=== PATIENT | male | born 1985 | race Caucasian/White ===

== ENCOUNTER 2021-06-22 04:02 | Emergency (ER) | payer OTHER ==
[2021-06-22] MEDS ORDERED: Diphtheria,Pertussis(Acell),Tetanus Vaccine 0.5 ML Syringe IM ONE (04:44)
[2021-06-22] MEDS ORDERED: HYDROmorphone 1 MG/ML Syringe IVPUSH ONE (04:47)
[2021-06-22] MEDS ORDERED: Ondansetron 4 MG/2 ML SDV IVPUSH ONE (04:47)
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
[2021-06-22] MEDS ORDERED: Diphtheria/Tetanus Toxoids,Adult (Td) 0.5 ML Syringe ONE (04:53)
[2021-06-22] MEDS ORDERED: Sodium Chloride 0.9% 1,000 ML IV SCH (05:00)
--- NOTE | 2021-06-22 07:19 | CT ---
CT chest Technique: Multiple axial sections were obtained from above the lung apices inferiorly through the lung bases. Intravenous contrast was utilized. Reconstructed coronal and sagittal images were obtained. Comparison: No prior chest imaging is available. Thoracic aorta shows no aneurysm. Mediastinum shows no adenopathy. No mediastinal hematoma is seen. No pericardial effusion is seen. Lung window settings were reviewed. Prominent deep tendon atelectasis is seen posteriorly within both lungs. Lungs otherwise are clear. No pleural effusions are seen. No pneumothorax is seen. Bone window settings were reviewed . Minimal lucent line is seen within the manubrium. Which is compatible with a small nondisplaced fracture. Very minimal soft tissue swelling is seen posteriorly. No discrete rib fracture is appreciated. No discrete fracture is seen within the visualized thoracic spine. Impression: 1. Prominent bilateral dependent atelectasis is seen posteriorly. 2. Nondisplaced fracture within the manubrium with minimal posterior soft tissue swelling. 3. Other portions of the CT study of the chest appear within normal limits. Diagnostic code #3 I agree with preliminary report from [facility], finalized on 06/21/21, 7:27 AM LOADER MACHINE, code 1 CT abdomen and pelvis Technique: Multiple axial sections were obtained from above the dome of the diaphragm inferiorly through the pubic symphysis. Intravenous contrast was utilized. No oral contrast has been given. Reconstructed coronal and sagittal images were obtained. Delayed images were also obtained through the abdomen and pelvis. Comparison: No prior abdominal imaging is available. Findings: Liver contains no focal parenchymal abnormality. Multiple gallstones are seen within the gallbladder. Spleen appears within normal limits. Adrenal glands show no nodule. Pancreas appears within normal limits. Kidneys show symmetric contrast enhancement. Low-density lesion noted within the inferior left kidney. This finding measures approximately 1.4 cm. This does not have Hounsfield unit measurements of a simple cyst but is most likely due to minimal hemorrhagic cyst which is likely chronic. Two additional small lesions are seen within the left kidney measuring less than 4 mm which are too small to measure by Hounsfield units but most likely represent additional cysts. Delayed images show contrast within the ureters as well as contrast within the bladder. No contrast extravasation is seen. Abdominal aorta shows no aneurysm. No retroperitoneal adenopathy or mesenteric abnormalities are seen. No pelvic mass or adenopathy is seen. Appendix is seen which is normal in size. No bowel dilatation is seen. No bowel wall thickening is seen. Bone window settings were reviewed. There is a compression deformity being seen within the superior endplate of L3 with mild anterior wedging. This is felt to be acute. There is no extension into the posterior elements being seen. No additional bony abnormality is seen within the visualized osseous structures. Impression: 1. Fracture within the anterior and superior endplate of L3 which shows anterior wedging. No extension of the fracture into the posterior elements is seen. 2. Three lesions within the left kidney which are most likely due to small cysts. 3. Gallstones are noted within the gallbladder. 4. No other acute abnormality is seen on CT study of the abdomen and pelvis. Diagnostic code #3 I agree with preliminary report from [facility], finalized on 06/21/21, 7:32 AM LOADER MACHINE
--- NOTE | 2021-06-22 07:19 | CR ---
Left elbow: 4 views of the left elbow were obtained. Comparison: No previous elbow study is available. Joint spaces are preserved. No joint effusion is seen. No fracture, dislocation or other bony abnormality is appreciated. Impression: 1. Nothing acute is seen on left elbow study. Diagnostic code #1
--- NOTE | 2021-06-22 07:19 | CT ---
CT facial bones Technique: Multiple axial sections through the facial bones were obtained. Reconstructed coronal and sagittal images were obtained. Intravenous contrast was not utilized. Comparison: No prior facial bone study is available. Findings: Nasal bone fracture is seen. This is mildly displaced by approximately 1.8 mm on the right side. Slight fracture is seen within the nasal septum. Mild amount of soft tissue air is seen compatible with soft tissue injury. Visualized paranasal sinuses show minimal mucosal thickening within the ethmoid region which is most likely chronic. Mastoid sinuses are clear. No additional facial bone fracture is seen. Impression: 1. Nasal bone fracture which is mildly displaced on the right side by 1.8 mm. Nasal septal fracture is also noted. 2. No additional facial bone abnormality is seen. Diagnostic code #3 I agree with preliminary report from [facility], finalized on 06/22/21, 7:19 AM HUMANE OFFICER, code 1
== END 2021-06-22 09:48 | disposition home or self-care (01) ==
LOC: JD.ED 04:02
DX: S02.2XXA Fracture of nasal bones, initial encounter for closed fracture (principal); S32.039A Unspecified fracture of third lumbar vertebra, initial encounter for closed fracture; S50.02XA Contusion of left elbow, initial encounter; Z91.048 Other nonmedicinal substance allergy status; Z86.16 Personal history of COVID-19; V49.40XA Driver injured in collision with unspecified motor vehicles in traffic accident, initial encounter; Y92.410 Unspecified street and highway as the place of occurrence of the external cause
CPT/HCPCS: 12011; 36415; 70486; 71260; 73080; 74177; 80048; 85025; 90471; 90714; 93005; 96374; 96375; 99285; J1170; J2405; J7030; 93010; 99284